=== PATIENT | female | born 1990 | race Caucasian/White ===

== ENCOUNTER 2017-12-15 21:30 | Emergency (ER) | payer BC, OTHER ==
[2017-12-15 21:54] VITALS: BP 117/72; PULSE 95; TEMP 98.2; BMI 22.3
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
== END 2017-12-15 23:55 | disposition home or self-care (01) ==
LOC: FER 21:30
DX: S13.9XXA Sprain of joints and ligaments of unspecified parts of neck, initial encounter (principal); G44.89 Other headache syndrome; V43.52XA Car driver injured in collision with other type car in traffic accident, initial encounter; Y93.89 Activity, other specified; Y92.410 Unspecified street and highway as the place of occurrence of the external cause
CPT/HCPCS: 99281-25

== ENCOUNTER 2020-04-23 12:34 | Emergency (ER) | payer OTHER | END 2020-04-23 13:58 | disposition home or self-care (01) | LOC: JVIRT 12:34 | DX: U07.1 COVID-19 (principal) | CPT/HCPCS: C9803; Q3014-GT; U0003 ==